=== PATIENT | male | born 1975 | race Two or more races ===

== ENCOUNTER 2017-06-17 20:57 | Inpatient (IN) | payer MEDICAID ==
[~2017-06-17] VITALS: Ht 162.6 cm; Wt 77.9 kg
[~2017-06-17 20:57] MED LIST: CITROMA PO
[2017-06-17] MEDS ORDERED: SOD CHLORIDE 0.9% 500 ML IV STA (22:12)
[2017-06-17 22:51] LABS: BASOPHIL # 0.1 10^3/ul (0.0-0.1); BASOPHILS % 0.6 % (0.0-2.0); EOSINOPHILS # 0.3 10^3/ul (0.0-0.5); EOSINOPHILS % 3.6 % (0.0-7.0); HEMATOCRIT 47.8 % (42.0-52.0); HEMOGLOBIN 16.1 g/dl (14.0-18.0); LYMPHOCYTES # 2.5 10^3/ul (0.8-2.9); LYMPHOCYTES % 31.4 % (15.0-51.0); MEAN CORPUSCULAR HEMOGLOBIN 30.2 pg (29.0-33.0); MEAN CORPUSCULAR HGB CONC 33.7 g/dl (32.0-37.0); MEAN CORPUSCULAR VOLUME 89.7 fl (82.0-101.0); MEAN PLATELET VOLUME 10.4 fl (7.4-10.4); MONOCYTE # 0.9 10^3/ul (0.3-0.9); MONOCYTES % 10.9 % (0.0-11.0); NEUTROPHIL # 4.2 10^3/ul (1.6-7.5); NEUTROPHILS % 53.2 % (39.0-77.0); PLATELET COUNT 242 10^3/UL (140-415); RED BLOOD COUNT 5.33 10^6/ul (4.70-6.10); RED CELL DISTRIBUTION WIDTH 12.8 % (11.5-14.5); WHITE BLOOD COUNT 7.8 10^3/ul (4.8-10.8)
[2017-06-17 23:05] LABS: INR 1.16; PROTIME 14.8 Sec (12.2-14.2); PT RATIO 1.2
[2017-06-17 23:06] LABS: PARTIAL THROMBOPLASTIN TIME 30.9 Sec (25.0-35.0)
[2017-06-17 23:10] LABS: ALANINE AMINOTRANSFERASE 85 IU/L (13-69); ALBUMIN 4.2 g/dl (3.3-4.9); ALBUMIN/GLOBULIN RATIO 1.07; ALKALINE PHOSPHATASE 89 IU/L (42-121); ANION GAP 9 (8-16); ASPARTATE AMINO TRANSFERASE 42 IU/L (15-46); BILIRUBIN,INDIRECT 0.3 mg/dl (0-1.1); BILIRUBIN,TOTAL 0.3 mg/dl (0.2-1.3); BLOOD UREA NITROGEN 10 mg/dl (7-20); CALCIUM 9.4 mg/dl (8.4-10.2); CARBON DIOXIDE 31 mmol/L (21-31); CHLORIDE 104 mmol/L (97-110); CREATININE 1.17 mg/dl (0.61-1.24); GLUCOSE 91 mg/dl (70-220); SODIUM 140 mmol/L (135-144); TOTAL PROTEIN 8.1 g/dl (6.1-8.1)
--- NOTE | 2017-06-17 23:24 | RADRPT ---
PROCEDURE: XR Chest. CLINICAL INDICATION: Abdominal pain. TECHNIQUE: PA and Lateral views of the chest were obtained. COMPARISON: None. FINDINGS: Cardiomegaly. Mild atelectasis at the left lung base. The lungs are otherwise clear. No signs of ple ural fluid or pneumothorax are seen. The osseous structures and soft tissues are unremarkable. IMPRESSION: Mild atelectasis at the left lung base. RPTAT: [facility] Physician Mckenzie Date Time Electronically viewed and signed by Physician Mckenzie on 06/17/2017 23:24 RS/
[2017-06-17 23:32] LABS: TROPONIN-I < 0.012 ng/ml (0.00-0.12)
--- NOTE | 2017-06-18 | RADRPT ---
PROCEDURE: CT ABDOMEN/PELVIS WITHOUT CONTRAST CLINICAL INDICATION: 41-year-old male with abdominal pain and rectal bleeding. TECHNIQUE: The study was performed utilizing a [employer] CO[employer] VCT 64-slice CT scanner. Direct axia l sections were obtained through the abdomen and pelvis without the use of intravenous contrast mate rial. Sagittal and coronal reformations were obtained. One or more of the following dose reduction t echniques were utilized: automated exposure control, adjustment of the mA and/or kV according to pat ient's size or use of iterative reconstruction technique. The [facility] CTD/vol = 11.3 mGy; Total Exam DLP = 668.5 mGy-cm. COMPARISON: CT abdomen/pelvis May 15, 2015. FINDINGS: The lung bases are unremarkable. There is no evidence for significant pleural effusion. The liver has a normal size and contour without focal areas of abnormal density. No intrahepatic nor extrahepa tic biliary ductal dilatation is seen. The gallbladder demonstrates no wall thickening nor perichole cystic fluid. No biliary stones are evident. The pancreas is without areas of abnormal attenuation. The spleen is identified and has a normal size without abnormal density. The adrenal glands are unr emarkable. The kidneys are without abnormal density. No hydroureteronephrosis nor nephroureterolithi asis is evident. The urinary bladder contains urine. There is mild retained stool within the ascendi ng and transverse colon without obstruction. The appendix is again noted to be patulous and mildly dilated measuring up to 10 mm but without surrounding inflammatory changes or free fluid. There is a focal area of narrowing within the rectosigmoid colon seen on axial image [id number] measuring approximately 1.5 cm in length. Shotty mesenteric lymph nodes are seen. The prostate is not enlarged however there are small calcifications within it. The aortoiliac vessels are without aneurysmal dil atation. The osseous structures are intact. IMPRESSION: 1. Mild retained stool within the proximal colon without obstruction. 2. Patulous mildly dilated appendix measuring up to 10 mm without surrounding inflammatory changes. This is similar in appearance compared to a CT scan from May 15, 2015. Early appendicitis cannot be totally excluded. Clinical correlation is necessary. 3. Focal short segment narrowing within the rectosigmoid colon which most likely represents nondist ended bowel however an underlying mass cannot be totally excluded. 4. Shotty mesenteric lymph nodes. .Gilmar Rivas MD, MD Date Time Electronically viewed and signed by .Gilmar Rivas MD, MD on 06/18/2017 00:00 ./
[2017-06-18 02:22] VITALS: TEMP 98
[2017-06-18 02:59] VITALS: Ht 162.6 cm; Wt 77.9 kg
[2017-06-18 03:00] VITALS: BP 138/90; RESP 18
[2017-06-18] MEDS ORDERED: morphine 4 MG/ML VIAL IV PRN (03:30)
[2017-06-18] MEDS: DEXTROSE 5%-0.45% NACL 1,000 ML IV SCH ×3 (03:48→13:59)
[2017-06-18] MEDS: PANTOPRAZOLE 40 MG INJ IV SCH (05:31)
[2017-06-18 08:54] VITALS: BP 119/80; RESP 15
--- NOTE | 2017-06-18 09:16 | HP ---
Date/Time of Note Date/Time of Note DATE: 06/18/17 TIME: 09:03 Assessment/Plan VTE Prophylaxis VTE Prophylaxis Intervention: SCD's Lines/Catheters IV [facility]ter Type (from [facility]): Saline Lock Urinary Cath still in place: No Assessment/Plan Assessment/Plan ASSESSMENT 41-year-old male with history of rectal abscess vs boil s/p I&D who presented with rectal bleeding PLAN -GI consult -Monitor H&H HPI/ROS Admit Date/Time Admit Date/Time Jun 18, 2017 at 01:10 Hx of Present Illness This is a 41-year-old male who was sent from clinic for rectal bleeding. He has been having bright red blood per rectum over the past 1 week. He denied dark stool, hematemesis, abdominal pain. He also denied a history of GI bleed. He said for years ago, he had an I&D for a rectal "boil". Patient actually went to a clinic for rectal bleeding and gait during physical examination, he was noted that significant bleeding occurred and as such he was instructed to go to the ER for further evaluation. He denied constipation, diarrhea, fever, chills, abdominal pain, nausea or vomiting. On physical examination, I noted that when pressure applied in the malachi-rectal area, there was significant bright red blood noted from the rectum. When he presented to the ER CT abdomen/pelvis shows the following 1. Mild retained stool within the proximal colon without obstruction. 2. Patulous mildly dilated appendix measuring up to 10 mm without surrounding inflammatory changes. This is similar in appearance compared to a CT scan from May 15, 2015. Early appendicitis cannot be totally excluded. Clinical correlation is necessary. 3. Focal short segment narrowing within the rectosigmoid colon which most likely represents nondistended bowel however an underlying mass cannot be totally excluded. 4. Shotty mesenteric lymph nodes. PMH/Family/Social Social History Smoking Status: Never smoker Exam/Review of Systems Vital Signs Vitals Vital Signs Date Time Temp Pulse Resp B/P Pulse Ox O2 Delivery O2 Flow Rate FiO2 06/18/17 08:54 98.2 70 15 119/80 98 06/18/17 02:22 Room Air Intake and Output 06/17/17 06/17/17 06/18/17 15:00 23:00 07:00 Intake Total 250 ml Balance 250 ml Exam Constitutional: alert, oriented, well developed Head: atraumatic, normocephalic Eyes: EOMI, PERRL Respiratory: clear to auscultation, normal air movement Cardiovascular: nl pulses, regular rate and rhythm Gastrointestinal: non-tender, soft Extremities: normal pulses Additional Comments Rectal examination shows that there is bright red blood per rectum when pressure applied in the perirectal area. No CRIS performed Labs Result Diagram: 06/17/17223806/17/172238 Medications Medications Current Medications Pantoprazole (Protonix Iv) 40 mg DAILY@06 IV Last administered on 06/18/17 05: 31; Admin Dose 40 MG; Start 06/18/17 at 06:00 Morphine Sulfate 3 mg 3 mg Q4H PRN IV PAIN; Start 06/18/17 at 03:30 Dextrose/Sodium Chloride (D5-1/2ns) 1,000 ml @ 125 mls/hr Q8H IV Last administered on 06/18/17 03:48; Admin Dose 125 MLS/HR; Start 06/18/17 at 03:30 ANDRY SHRESTHA MD Jun 18, 2017 09:14
[2017-06-18 15:28] VITALS: BP 104/77; RESP 18
--- NOTE | 2017-06-18 15:51 | PN ---
Date/Time of Note Date/Time of Note DATE: 06/18/17 TIME: 15:45 Assessment/Plan VTE Prophylaxis VTE Prophylaxis Intervention: SCD's Lines/Catheters IV Catheter Type (from [facility]): Saline Lock Urinary Cath still in place: No Assessment/Plan Chief Complaint/Hosp Course A/P: 41-year-old male with history of rectal abscess vs boil s/p I&D who presented with rectal bleeding. 1. GI bleeding - We will follow-up GI consult recommendations, continue n.p.o. status for now, IV fluids, pain control medications, PPI. - Continue to monitor H/H - If worsens, may need to consider Surgery consult 2. GI prophylaxis: PPI Problems: Subjective 24 Hr Interval Summary Free Text/Dictation No acute events overnight, denies any present lower GI or rectal bleeding. Exam/Review of Systems Vital Signs Vitals Vital Signs Date Time Temp Pulse Resp B/P Pulse Ox O2 Delivery O2 Flow Rate FiO2 06/18/17 15:28 97.8 64 18 104/77 99 06/18/17 02:22 Room Air Intake and Output 06/17/17 06/17/17 06/18/17 15:00 23:00 07:00 Intake Total 250 ml Balance 250 ml Exam Constitutional: alert, oriented, well developed Head: atraumatic, normocephalic Eyes: EOMI, PERRL Respiratory: clear to auscultation, normal air movement Cardiovascular: nl pulses, regular rate and rhythm Gastrointestinal: non-tender, soft Extremities: normal pulses Results Result Diagram: 06/17/17223806/17/172238 Results 24 hrs Laboratory Tests Test 06/17/17 22:39 White Blood Count 7.8 # Red Blood Count 5.33 Hemoglobin 16.1 Hematocrit 47.8 Mean Corpuscular Volume 89.7 Mean Corpuscular Hemoglobin 30.2 Mean Corpuscular Hemoglobin Concent 33.7 Red Cell Distribution Width 12.8 Platelet Count 242 Mean Platelet Volume 10.4 Neutrophils % 53.2 Lymphocytes % 31.4 Monocytes % 10.9 Eosinophils % 3.6 Basophils % 0.6 Nucleated Red Blood Cells % 0.0 Neutrophils # 4.2 Lymphocytes # 2.5 Monocytes # 0.9 Eosinophils # 0.3 Basophils # 0.1 Nucleated Red Blood Cells # 0.0 Prothrombin Time 14.8 H Prothrombin Time Ratio 1.2 INR International Normalized Ratio 1.16 Activated Partial Thromboplast Time 30.9 Sodium Level 140 Potassium Level 4.0 Chloride Level 104 Carbon Dioxide Level 31 Anion Gap 9 Blood Urea Nitrogen 10 Creatinine 1.17 Glucose Level 91 Calcium Level 9.4 Total Bilirubin 0.3 Direct Bilirubin 0.00 Indirect Bilirubin 0.3 Aspartate Amino Transf (AST/SGOT) 42 Alanine Aminotransferase (ALT/SGPT) 85 H Alkaline Phosphatase 89 Troponin I < 0.012 Total Protein 8.1 Albumin 4.2 Globulin 3.90 H Albumin/Globulin Ratio 1.07 Lipase 101 Medications Medications Current Medications Pantoprazole (Protonix Iv) 40 mg DAILY@06 IV Last administered on 06/18/17 05: 31; Admin Dose 40 MG; Start 06/18/17 at 06:00 Morphine Sulfate 3 mg 3 mg Q4H PRN IV PAIN; Start 06/18/17 at 03:30 Dextrose/Sodium Chloride (D5-1/2ns) 1,000 ml @ 125 mls/hr Q8H IV Last administered on 06/18/17 13:59; Admin Dose 125 MLS/HR; Start 06/18/17 at 03:30 NICOLAS PARNELL Jun 18, 2017 15:51
[2017-06-18] MEDS ORDERED: ONDANSETRON 4 MG INJ IV PRN (16:00)
[2017-06-18] MEDS ORDERED: ACETAMINOPHEN 325 MG TAB PO PRN (16:00)
[2017-06-18] MEDS ORDERED: morphine 2 MG INJ IV PRN (16:00)
[2017-06-18 17:47] LABS: ADD UMIC NO; UR ASCORBIC ACID NEGATIVE (NEGATIVE); UR BILIRUBIN (Dip) NEGATIVE (NEGATIVE); UR BLOOD (Dip) NEGATIVE (NEGATIVE); UR CLARITY CLEAR (CLEAR); UR COLOR STRAW (YELLOW); UR GLUCOSE (Dip) NEGATIVE (NEGATIVE); UR KETONES (Dip) NEGATIVE (NEGATIVE); UR LEUKOCYTE ESTERASE (Dip) NEGATIVE Leu/ul (NEGATIVE); UR NITRITE (Dip) NEGATIVE (NEGATIVE); UR SPECIFIC GRAVITY (Dip) 1.009 (1.003-1.030); UR TOTAL PROTEIN (Dip) NEGATIVE (NEGATIVE); UR UROBILINOGEN (Dip) NEGATIVE (NEGATIVE)
--- NOTE | 2017-06-18 17:57 | CONS ---
Date/Time of Note Date/Time of Note DATE: 06/18/17 TIME: 17:47 Assessment/Plan Assessment/Plan Additional Assessment/Plan Assessment * Hematochezia R/O av malformation vs colonic mass by CT vs others Plan * Colonoscopy tomorrow risk and benefit explained to patient agreed with the planned procedure * will start bowel preparation * case discussed with Dr Sanchez * Further orders will depend on clinical course Consultation Date/Type/Reason Admit Date/Time Jun 18, 2017 at 01:10 Type of Consultation: gastroenterology Reason for Consultation rectal bleed Referring Provider: NICOLAS PARNELL 41 year old male admitted because of hematochezia.present condition apparently started 2 day prior to consult as hematochezia moderate in amount with fresh blood and blood clots.He denies any constipation,abdominal pain,nor hematemesis.He consulted private clinic was promptly referred to er for evaluation.Emergency room workup revealed a hemoglobin 15 ct scan abdomen revealed 1. Mild retained stool within the proximal colon without obstruction. 2. Patulous mildly dilated appendix measuring up to 10 mm without surrounding inflammatory changes. This is similar in appearance compared to a CT scan from May 15, 2015. Early appendicitis cannot be totally excluded. Clinical correlation is necessary. 3. Focal short segment narrowing within the rectosigmoid colon which most likely represents nondistended bowel however an underlying mass cannot be totally excluded. 4. Shotty mesenteric lymph nodes. Patient will undergo colonoscopy to rule out any colonic pathology Past Medical History Medical History: no pertinent history Past Surgical History Past Surgical Hx: no surgical history Family History Significant Family History: no pertinent family hx Social History Smoking Status: Never smoker Exam/Review of Systems Vital Signs Vitals Vital Signs Date Time Temp Pulse Resp B/P Pulse Ox O2 Delivery O2 Flow Rate FiO2 06/18/17 15:28 97.8 64 18 104/77 99 06/18/17 02:22 Room Air Intake and Output 06/17/17 06/17/17 06/18/17 15:00 23:00 07:00 Intake Total 250 ml Balance 250 ml Exam Constitutional: alert, oriented, well developed Psych: nl mood/affect, no complaints Head: atraumatic, normocephalic Eyes: EOMI, PERRL, nl conjunctiva, nl lids, nl sclera ENMT: nl external ears & nose, nl lips & teeth, nl nasal mucosa & septum Neck: non-tender, supple Respiratory: clear to auscultation, normal air movement Cardiovascular: nl pulses, regular rate and rhythm Gastrointestinal: nl liver, spleen, non-tender, soft Musculoskeletal: nl extremities to inspection, nl gait and stance Extremities: normal pulses Neurological: CARPENTER GENERAL II-XII intact, nl mental status, nl speech, nl strength Skin: nl turgor, No rash or lesions Lymph: nl lymph nodes Results Result Diagram: 06/17/17223806/17/172238 Results 24 hrs Laboratory Tests Test 06/17/17 22:39 White Blood Count 7.8 # Red Blood Count 5.33 Hemoglobin 16.1 Hematocrit 47.8 Mean Corpuscular Volume 89.7 Mean Corpuscular Hemoglobin 30.2 Mean Corpuscular Hemoglobin Concent 33.7 Red Cell Distribution Width 12.8 Platelet Count 242 Mean Platelet Volume 10.4 Neutrophils % 53.2 Lymphocytes % 31.4 Monocytes % 10.9 Eosinophils % 3.6 Basophils % 0.6 Nucleated Red Blood Cells % 0.0 Neutrophils # 4.2 Lymphocytes # 2.5 Monocytes # 0.9 Eosinophils # 0.3 Basophils # 0.1 Nucleated Red Blood Cells # 0.0 Prothrombin Time 14.8 H Prothrombin Time Ratio 1.2 INR International Normalized Ratio 1.16 Activated Partial Thromboplast Time 30.9 Sodium Level 140 Potassium Level 4.0 Chloride Level 104 Carbon Dioxide Level 31 Anion Gap 9 Blood Urea Nitrogen 10 Creatinine 1.17 Glucose Level 91 Calcium Level 9.4 Total Bilirubin 0.3 Direct Bilirubin 0.00 Indirect Bilirubin 0.3 Aspartate Amino Transf (AST/SGOT) 42 Alanine Aminotransferase (ALT/SGPT) 85 H Alkaline Phosphatase 89 Troponin I < 0.012 Total Protein 8.1 Albumin 4.2 Globulin 3.90 H Albumin/Globulin Ratio 1.07 Lipase 101 Medications Medications Current Medications Pantoprazole 40 mg 40 mg DAILY@06 IV Last administered on 06/18/17 05:31; Admin Dose 40 MG; Start 06/18/17 at 06:00 Dextrose/Sodium Chloride (D5-1/2ns) 1,000 ml @ 125 mls/hr Q8H IV Last administered on 06/18/17 13:59; Admin Dose 125 MLS/HR; Start 06/18/17 at 03:30 Morphine Sulfate (morphine) 1 mg Q4H PRN IV PAIN; Start 06/18/17 at 16:00 Acetaminophen (Tylenol Tab) 650 mg Q6H PRN PO PAIN AND OR ELEVATED TEMP; Start 06/18/17 at 16:00 Ondansetron HCl (Zofran Inj) 4 mg Q6H PRN IV NAUSEA AND/OR VOMITING; Start at 16:00 CODY BALLARD NP Jun 18, 2017 17:57
[2017-06-18] MEDS ORDERED: BISACODYL (EC) 5 MG TAB PO ONE (20:00)
[2017-06-18] MEDS ORDERED: MAGNESIUM CITRATE 300 ML BTL PO ONE (20:30)
[2017-06-18 20:54] VITALS: BP 116/80; RESP 20
[2017-06-18] MEDS ORDERED: POLYETHYLENE GLYCOL 3350 119 GM POWDER PO ONE (21:30)
[2017-06-19] VITALS (14 sets, daily range): BP systolic 104–127; BP diastolic 62–85; PULSE 56–94; RESP 17–22
[2017-06-19] MEDS: DEXTROSE 5%-0.45% NACL 1,000 ML IV SCH ×3 (03:30→18:08)
[2017-06-19] MEDS: PANTOPRAZOLE 40 MG INJ IV SCH (05:49)
[2017-06-19] MEDS ORDERED: POLYETHYLENE GLYCOL 3350 119 GM POWDER PO ONE (06:00)
[2017-06-19 06:18] LABS: BASOPHIL # 0.1 10^3/ul (0.0-0.1); EOSINOPHILS # 0.3 10^3/ul (0.0-0.5); EOSINOPHILS % 4.6 % (0.0-7.0); HEMATOCRIT 48.7 % (42.0-52.0); LYMPHOCYTES # 2.2 10^3/ul (0.8-2.9); LYMPHOCYTES % 35.4 % (15.0-51.0); MEAN CORPUSCULAR HEMOGLOBIN 29.6 pg (29.0-33.0); MEAN CORPUSCULAR HGB CONC 32.9 g/dl (32.0-37.0); MEAN PLATELET VOLUME 10.5 fl (7.4-10.4); MONOCYTE # 0.6 10^3/ul (0.3-0.9); MONOCYTES % 10.2 % (0.0-11.0); NEUTROPHILS % 48.3 % (39.0-77.0); PLATELET COUNT 233 10^3/UL (140-415); RED BLOOD COUNT 5.41 10^6/ul (4.70-6.10); RED CELL DISTRIBUTION WIDTH 12.9 % (11.5-14.5); WHITE BLOOD COUNT 6.3 10^3/ul (4.8-10.8)
[2017-06-19 06:48] LABS: CALCIUM 8.8 mg/dl (8.4-10.2); CREATININE 1.16 mg/dl (0.61-1.24)
[2017-06-19] MEDS ORDERED: BISACODYL (EC) 5 MG TAB PO ONE (08:00)
--- NOTE | 2017-06-19 15:42 | PN ---
Date/Time of Note Date/Time of Note DATE: 06/19/17 TIME: 15:40 Assessment/Plan VTE Prophylaxis VTE Prophylaxis Intervention: SCD's Lines/Catheters IV [facility] Type [facility] Peripheral IV Urinary Cath still in place: No Assessment/Plan Chief Complaint/Hosp Course A/P: 41-year-old male with history of rectal abscess vs boil s/p I&D who presented with rectal bleeding. 1. GI bleeding -likely rectal source --follow-up results of colonoscopy, continue n.p.o. status for now, IV fluids , pain control medications, PPI. - Continue to monitor H/H - If worsens, may need to consider Surgery consult 2. GI prophylaxis: PPI Problems: Subjective 24 Hr Interval Summary Free Text/Dictation Had some mild rectal bleeding last night, presently getting colonoscopy. Exam/Review of Systems Vital Signs Vitals Vital Signs Date Time Temp Pulse Resp B/P Pulse Ox O2 Delivery O2 Flow Rate FiO2 06/19/17 15:04 99.1 94 19 116/77 94 Room Air Intake and Output 06/18/17 06/18/17 06/19/17 15:00 23:00 07:00 Intake Total 750 ml 855 ml 325 ml Output Total 2 ml Balance 750 ml 855 ml 323 ml Exam Physical exam: -Unable to be performed today because patient is presently downstairs getting colonoscopy in GI lab Results Result Diagram: 06/19/17 0549 06/19/17 0548 Results 24 hrs Laboratory Tests Test 06/18/17 17:05 06/19/17 05:48 06/19/17 05:49 Urine Color STRAW Urine Clarity CLEAR Urine pH 7.0 Urine Specific [place] 1.009 Urine Ketones NEGATIVE Urine Nitrite NEGATIVE Urine Bilirubin NEGATIVE Urine Urobilinogen NEGATIVE Urine Leukocyte Esterase NEGATIVE Urine Hemoglobin NEGATIVE Urine Glucose NEGATIVE Urine Total Protein NEGATIVE Sodium Level 140 Potassium Level 4.0 Chloride Level 107 Carbon Dioxide Level 27 Anion Gap 10 Blood Urea Nitrogen 8 Creatinine 1.16 Glucose Level 99 Calcium Level 8.8 White Blood Count 6.3 Red Blood Count 5.41 Hemoglobin 16.0 Hematocrit 48.7 Mean Corpuscular Volume 90.0 Mean Corpuscular Hemoglobin 29.6 Mean Corpuscular Hemoglobin Concent 32.9 Red Cell Distribution Width 12.9 Platelet Count 233 Mean Platelet Volume 10.5 H Neutrophils % 48.3 Lymphocytes % 35.4 Monocytes % 10.2 Eosinophils % 4.6 Basophils % 1.0 Nucleated Red Blood Cells % 0.0 Neutrophils # 3.0 Lymphocytes # 2.2 Monocytes # 0.6 Eosinophils # 0.3 Basophils # 0.1 Nucleated Red Blood Cells # 0.0 Medications Medications Current Medications Pantoprazole 40 mg 40 mg DAILY@06 IV Last administered on 06/19/17 05:49; Admin Dose 40 MG; Start 06/18/17 at 06:00 Dextrose/Sodium Chloride (D5-1/2ns) 1,000 ml @ 125 mls/hr Q8H IV Last administered on 06/19/17 12:18; Admin Dose 125 MLS/HR; Start 06/18/17 at 03:30 Morphine Sulfate (morphine) 1 mg Q4H PRN IV PAIN; Start 06/18/17 at 16:00 Acetaminophen (Tylenol Tab) 650 mg Q6H PRN PO PAIN AND OR ELEVATED TEMP; Start 06/18/17 at 16:00 Ondansetron HCl (Zofran Inj) 4 mg Q6H PRN IV NAUSEA AND/OR VOMITING; Start at 16:00 NICOLAS PARNELL Jun 19, 2017 15:42
[2017-06-19] MEDS ORDERED: PROPOFOL 60 ML ONE (15:58)
[2017-06-19] MEDS ORDERED: LIDOCAINE 2% (SDV) 5 ML INJ ONE (15:58)
--- NOTE | 2017-06-19 16:20 | OPPN ---
Date/Time of Note Date/Time of Note DATE: 06/19/17 TIME: 16:16 Proc Note GI Procedure Date 06/19/17 Pre-procedure Diagnosis * Hematochezia Post-procedure Diagnosis Impression: * 4 mm sessile polyp descending colon. Ablated * Large internal hemorrhoids. Likely source of hematochezia * Otherwise normal colonoscopy to cecum Plan: * Review pathology * High-fiber diet * Conservative management hemorrhoidal disease, if bleeding persist surgical evaluation for possible hemorrhoidectomy * Annual Hemoccult stool testing * Surveillance colonoscopy in 5 years . Procedure Performed: Colonoscopy (With polyp ablation) Surgeon LIZETH PARR MD Gun Fitter none Tourniquet Time none EBL none Transfusion required none Polyp 1: Descending colon polyp Grafts/Implants none Tubes/Drains none Complication(s) none Pt Condition post procedure: stable Disposition: PACU Indications: lower GI bleed Procedure Description After informed consent, with the patient/relatives understanding the procedure, its indications and potential risks and complications, including but not limited to: Allergic reaction, bleeding, perforation, infection, and after all pertinent questions were answered to the patient's satisfaction, the patient/ relatives signed the witnessed informed consent. Following this, premedication was administered slowly IV push under careful cardiovascular and respiratory monitoring with pulse OXIMETRY, automatic blood pressure, and monitoring engineer. Once the sedative effect was achieved, the patient was placed in the left lateral decubitus position, digital rectal examination was performed. The colonoscope was then introduced and advanced under visual control throughout all segments of the colon including: the rectum, sigmoid, descending colon, splenic flexure, transverse colon, hepatic flexure, ascending colon and finally reaching the cecum which was clearly identified by transillumination, finger indentation and the ileocecal valve. Careful examination of the mucosa of the lower gastrointestinal tract both on insertion as well as withdrawal of the instrument disclosed the following findings: PREPARATION QUALITY: [Adequate], RECTAL EXAM: The anorectal area was visualized examined and digital rectal examination performed with the following findings: Small external hemorrhoids and slight deformity in the perianal area. Otherwise no evidence of perirectal disease, no masses. COLONIC MUCOSA: The mucosa of all segments of the colon was carefully examined and showed the following findings: There is a 4 mm sessile polyp in the descending colon. Ablated. Large internal hemorrhoids are present. Otherwise the examined mucosa appears within normal limits. There is no evidence of inflammatory changes, diverticular formation, other neoplasms, vascular malformation, or any other abnormality. The instrument was then withdrawn, the patient tolerated the procedure well and was transferred out of the Endoscopy Suite awake and in good condition to continue recovery under observation. Copies To: CC: LIZETH PARR MD, MORDO MD Jun 19, 2017 16:20
--- NOTE | 2017-06-19 18:43 | HPN ---
Date/Time of Note Date/Time of Note DATE: 06/19/17 TIME: 18:43 Interval H&P Admission Note Pt. seen H&P reviewed: No system changes LIZETH PARR MD Jun 19, 2017 18:43
[2017-06-20 03:08] VITALS: BP 96/56; RESP 18
[2017-06-20] MEDS: DEXTROSE 5%-0.45% NACL 1,000 ML IV SCH ×2 (03:12→12:43)
[2017-06-20] MEDS: PANTOPRAZOLE 40 MG INJ IV SCH (05:27)
[2017-06-20 06:16] LABS: BASOPHILS % 0.6 % (0.0-2.0); EOSINOPHILS # 0.2 10^3/ul (0.0-0.5); EOSINOPHILS % 3.7 % (0.0-7.0); HEMATOCRIT 46.6 % (42.0-52.0); HEMOGLOBIN 15.5 g/dl (14.0-18.0); LYMPHOCYTES # 2.3 10^3/ul (0.8-2.9); LYMPHOCYTES % 35.6 % (15.0-51.0); MEAN CORPUSCULAR HEMOGLOBIN 29.9 pg (29.0-33.0); MEAN CORPUSCULAR HGB CONC 33.3 g/dl (32.0-37.0); MEAN PLATELET VOLUME 10.8 fl (7.4-10.4); MONOCYTE # 0.6 10^3/ul (0.3-0.9); MONOCYTES % 8.7 % (0.0-11.0); NEUTROPHIL # 3.4 10^3/ul (1.6-7.5); NEUTROPHILS % 51.2 % (39.0-77.0); PLATELET COUNT 226 10^3/UL (140-415); RED BLOOD COUNT 5.18 10^6/ul (4.70-6.10); RED CELL DISTRIBUTION WIDTH 12.9 % (11.5-14.5); WHITE BLOOD COUNT 6.5 10^3/ul (4.8-10.8)
[2017-06-20 06:38] LABS: CALCIUM 8.4 mg/dl (8.4-10.2); CREATININE 1.13 mg/dl (0.61-1.24); POTASSIUM 3.8 mmol/L (3.5-5.1)
[2017-06-20 07:55] VITALS: BP 114/79; RESP 20
--- NOTE | 2017-06-20 14:44 | PN ---
Date/Time of Note Date/Time of Note DATE: 06/20/17 TIME: 14:39 Assessment/Plan VTE Prophylaxis VTE Prophylaxis Intervention: SCD's Lines/Catheters IV [facility]from [facility] Peripheral IV Urinary Cath still in place: No Assessment/Plan Assessment/Plan Assessment * Hematochezia Colonoscopy 4 mm sessile polyp descending colon. Ablated Large internal hemorrhoids. Likely source of hematochezia Otherwise normal colonoscopy to cecum Plan * continue present management * case discussed with DR Sanchez * Further orders will depend on clinical course Subjective 24 Hr Interval Summary Free Text/Dictation * course reviewed * patient seen and examined * Colonoscopy 4 mm sessile polyp descending colon. Ablated Large internal hemorrhoids. Likely source of hematochezia Otherwise normal colonoscopy to cecum Exam/Review of Systems Vital Signs Vitals Vital Signs Date Time Temp Pulse Resp B/P Pulse Ox O2 Delivery O2 Flow Rate FiO2 06/20/17 07:55 98.0 63 20 114/79 97 06/19/17 16:57 Nasal Cannula 2.0 Intake and Output 06/19/17 06/19/17 06/20/17 15:00 23:00 07:00 Intake Total 300 ml 300 ml 1430 ml Balance 300 ml 300 ml 1430 ml Exam Constitutional: alert, oriented Head: atraumatic, normocephalic Respiratory: clear to auscultation, normal air movement Cardiovascular: nl pulses, regular rate and rhythm Gastrointestinal: nl liver, spleen, soft Musculoskeletal: nl extremities to inspection, nl gait and stance Extremities: normal pulses Neurological: nl mental status, nl speech Skin: nl turgor Results Result Diagram: 06/20/17 0511 06/20/17 0511 Results 24 hrs Laboratory Tests Test 06/20/17 05:11 White Blood Count 6.5 Red Blood Count 5.18 Hemoglobin 15.5 Hematocrit 46.6 Mean Corpuscular Volume 90.0 Mean Corpuscular Hemoglobin 29.9 Mean Corpuscular Hemoglobin Concent 33.3 Red Cell Distribution Width 12.9 Platelet Count 226 Mean Platelet Volume 10.8 H Neutrophils % 51.2 Lymphocytes % 35.6 Monocytes % 8.7 Eosinophils % 3.7 Basophils % 0.6 Nucleated Red Blood Cells % 0.0 Neutrophils # 3.4 Lymphocytes # 2.3 Monocytes # 0.6 Eosinophils # 0.2 Basophils # 0.0 Nucleated Red Blood Cells # 0.0 Sodium Level 140 Potassium Level 3.8 Chloride Level 109 Carbon Dioxide Level 25 Anion Gap 10 Blood Urea Nitrogen 10 Creatinine 1.13 Glucose Level 106 Calcium Level 8.4 Medications Medications Current Medications Pantoprazole 40 mg 40 mg DAILY@06 IV Last administered on 06/20/17 05:27; Admin Dose 40 MG; Start 06/18/17 at 06:00 Dextrose/Sodium Chloride (D5-1/2ns) 1,000 ml @ 125 mls/hr Q8H IV Last administered on 06/20/17 12:43; Admin Dose 125 MLS/HR; Start 06/18/17 at 03:30 Morphine Sulfate (morphine) 1 mg Q4H PRN IV PAIN; Start 06/18/17 at 16:00 Acetaminophen (Tylenol Tab) 650 mg Q6H PRN PO PAIN AND OR ELEVATED TEMP; Start 06/18/17 at 16:00 Ondansetron HCl (Zofran Inj) 4 mg Q6H PRN IV NAUSEA AND/OR VOMITING; Start at 16:00 CODY BALLARD NP Jun 20, 2017 14:44
[2017-06-20 15:06] VITALS: BP 112/69; RESP 20
--- NOTE | 2017-06-20 15:58 | DS ---
Date/Time of Note Date/Time of Note DATE: 06/20/17 TIME: 15:54 Discharge Summary Admission/Discharge Info Admit Date/Time Jun 18, 2017 at 01:10 Discharge Date/Time Discharge Diagnosis 1. Rectal bleeding, from hemorrhoid, stopped, follow up with PCP 2. S/p Colonoscopy, follow up with GI for pathology Patient Condition: Stable Procedures Proc Note GI Procedure Date 06/19/17 Pre-procedure Diagnosis * Hematochezia Post-procedure Diagnosis Impression: * 4 mm sessile polyp descending colon. Ablated * Large internal hemorrhoids. Likely source of hematochezia * Otherwise normal colonoscopy to cecum Plan: * Review pathology * High-fiber diet * Conservative management hemorrhoidal disease, if bleeding persist surgical evaluation for possible hemorrhoidectomy * Annual Hemoccult stool testing * Surveillance colonoscopy in 5 years . Procedure Performed: Colonoscopy (With polyp ablation) Surgeon LIZETH SANCHEZ MD Business Strategy Manager none Tourniquet Time none EBL none Transfusion required none Polyp 1: Descending colon polyp Grafts/Implants none Tubes/Drains none Complication(s) none Pt Condition post procedure: stable Disposition: PACU Indications: lower GI bleed Procedure Description After informed consent, with the patient/relatives understanding the procedure, its indications and potential risks and complications, including but not limited to: Allergic reaction, bleeding, perforation, infection, and after all pertinent questions were answered to the patient's satisfaction, the patient/ relatives signed the witnessed informed consent. Following this, premedication was administered slowly IV push under careful cardiovascular and respiratory monitoring with pulse OXIMETRY, automatic blood pressure, and monitor car operator. Once the sedative effect was achieved, the patient was placed in the left lateral decubitus position, digital rectal examination was performed. The colonoscope was then introduced and advanced under visual control throughout all segments of the colon including: the rectum, sigmoid, descending colon, splenic flexure, transverse colon, hepatic flexure, ascending colon and finally reaching the cecum which was clearly identified by transillumination, finger indentation and the ileocecal valve. Careful examination of the mucosa of the lower gastrointestinal tract both on insertion as well as withdrawal of the instrument disclosed the following findings: PREPARATION QUALITY: [Adequate], RECTAL EXAM: The anorectal area was visualized examined and digital rectal examination performed with the following findings: Small external hemorrhoids and slight deformity in the perianal area. Otherwise no evidence of perirectal disease, no masses. COLONIC MUCOSA: The mucosa of all segments of the colon was carefully examined and showed the following findings: There is a 4 mm sessile polyp in the descending colon. Ablated. Large internal hemorrhoids are present. Otherwise the examined mucosa appears within normal limits. There is no evidence of inflammatory changes, diverticular formation, other neoplasms, vascular malformation, or any other abnormality. The instrument was then withdrawn, the patient tolerated the procedure well and was transferred out of the Endoscopy Suite awake and in good condition to continue recovery under observation. Copies To: CC: LIZETH SANCHEZ MD, MORDO MD Hx of Present Illness This is a 41-year-old male who was sent from clinic for rectal bleeding. He has been having bright red blood per rectum over the past 1 week. He denied dark stool, hematemesis, abdominal pain. He also denied a history of GI bleed. He said for years ago, he had an I&D for a rectal "boil". Patient actually went to a clinic for rectal bleeding and gait during physical examination, he was noted that significant bleeding occurred and as such he was instructed to go to the ER for further evaluation. He denied constipation, diarrhea, fever, chills, abdominal pain, nausea or vomiting. On physical examination, I noted that when pressure applied in the malachi-rectal area, there was significant bright red blood noted from the rectum. When he presented to the ER CT abdomen/pelvis shows the following 1. Mild retained stool within the proximal colon without obstruction. 2. Patulous mildly dilated appendix measuring up to 10 mm without surrounding inflammatory changes. This is similar in appearance compared to a CT scan from May 15, 2015. Early appendicitis cannot be totally excluded. Clinical correlation is necessary. 3. Focal short segment narrowing within the rectosigmoid colon which most likely represents nondistended bowel however an underlying mass cannot be totally excluded. 4. Shotty mesenteric lymph nodes. Hospital Course Physical exam unremarkable. H/H stable. Colonoscopy revealed a polyp and a large inner hemorrhoid that it is believed the source of rectal bleeding. Bleeding stopped. Patient will follow up with Dr. Sanchez in one week for pathology of the polyp. Home Meds Discontinued Scripts Magnesium Citrate* (Citroma*) 300 Ml Soln, 300 ML PO DIRECTED Y for CONSTIPATION, #1 BOTTLE Prov:OBDULIA JENKINS NP 05/15/15 Follow-up Plan PCP one week Dr. Sanchez in one week Primary Care Provider Care Physician No Primary Pending Labs Laboratory Tests Test 06/20/17 05:11 White Blood Count 6.510^3/ul (4.8-10.8) Red Blood Count 5.1810^6/ul (4.70-6.10) Hemoglobin 15.5g/dl (14.0-18.0) Hematocrit 46.6% (42.0-52.0) Mean Corpuscular Volume 90.0fl (82.0-101.0) Mean Corpuscular Hemoglobin 29.9pg (29.0-33.0) Mean Corpuscular Hemoglobin Concent 33.3g/dl (32.0-37.0) Red Cell Distribution Width 12.9% (11.5-14.5) Platelet Count 65072^3/UL (140-415) Mean Platelet Volume 10.8fl (7.4-10.4) Neutrophils % 51.2% (39.0-77.0) Lymphocytes % 35.6% (15.0-51.0) Monocytes % 8.7% (0.0-11.0) Eosinophils % 3.7% (0.0-7.0) Basophils % 0.6% (0.0-2.0) Nucleated Red Blood Cells % 0.0/100WBC (0.0-0.0) Neutrophils # 3.410^3/ul (1.6-7.5) Lymphocytes # 2.310^3/ul (0.8-2.9) Monocytes # 0.610^3/ul (0.3-0.9) Eosinophils # 0.210^3/ul (0.0-0.5) Basophils # 0.010^3/ul (0.0-0.1) Nucleated Red Blood Cells # 0.010^3/ul (0.0-0.0) Sodium Level 140mmol/L (135-144) Potassium Level 3.8mmol/L (3.5-5.1) Chloride Level 109mmol/L (97-110) Carbon Dioxide Level 25mmol/L (21-31) Anion Gap 10 (8-16) Blood Urea Nitrogen 10mg/dl (7-20) Creatinine 1.13mg/dl (0.61-1.24) Glucose Level 106mg/dl (70-220) Calcium Level 8.4mg/dl (8.4-10.2) BETO VICK MD Jun 20, 2017 15:58
== END 2017-06-20 16:48 | disposition home or self-care (01) | DRG 395 ==
LOC: E/R 20:57 → PP2 06-18 01:10
PROVIDERS: ADMIT Hospitalist; ATTEND Hospitalist
PROC: 0D5M8ZZ Destruction of Descending Colon, Via Natural or Artificial Opening Endoscopic (ICD-10-PCS; principal; 2017-06-19 21:00)
DX: K64.8 Other hemorrhoids (principal); K63.5 Polyp of colon
CPT/HCPCS: 71010; 74176; 80048; 80053; 81003; 83690; 84484; 85025; 85610; 85730; 88305; 93005; C9113; J7040; J7042